=== PATIENT | female | born 1975 | race Caucasian/White ===

== ENCOUNTER 2017-08-24 14:37 | Emergency (ER) | payer OTHER ==
[~2017-08-24] VITALS: Ht 162.6 cm; Wt 127.0 kg
--- OUTSIDE RECORDS SUMMARY | 2017-08-24 15:13 | External Medical Summary Rpt | CCD ---
Author Author , HANS MAXWELL Address Unknown Phone Purpose Continuity of Care Document - through 2016
--- OUTSIDE RECORDS SUMMARY | 2017-08-24 15:13 | External Medical Summary Rpt | CCD ---
Demographics Preferred Language Argentine Marital Status Unknown [facility] Affiliation Unknown Race Unknown Ethnic Group Unknown Author Author , HANS MAXWELL Address Unknown Phone Immunization No patient found.
--- OUTSIDE RECORDS SUMMARY | 2017-08-24 15:13 | External Medical Summary Rpt | CCD ---
Demographics Preferred Language Albanian Marital Status Unknown Jain Affiliation Unknown Race Unknown Ethnic Group Unknown Author Author , HANS MAXWELL Address Unknown Phone Immunization No patient found.
[2017-08-24 15:14] LABS: HEMOGLOBIN 12.9 g/dL (12.2-16.2); LYMPH # 1.1 K/mm3 (0.7-4.5); LYMPH % 8.2 % (10-50.0)
[2017-08-24 15:37] LABS: BUN 11 mg/dL (7-18); GFR (ESTIMATED) 110 ML/MIN (59-)
--- NOTE | 2017-08-24 15:57 | Emergency Room Report ---
History of Present Illness Time Seen by MD Guajardo Presenting Problem in Triage Pt arrived:Walked Presenting Problem:ABOUT 11PM PATIENT WOKE UP OUT OF SLEEP AND BEGAN PUKING AND CONTINUED TO PUKE EVERY 5 MINUTES. 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 N Clinical Suspician of Infection? N Mental Status: 1 - Regular (Normal Baseline) Sepsis Risk:Low Sepsis Risk Have you (or family members/close friends) recently traveled outside the [place]? N If Yes, where/when: Have you had exposure to infectious disease within the past month? N TB? Other? Specify: 42 years old white female WORKS IN [employer] WHO DEVELOPED DIARRHEA 10-20 TIMES AT 11 PM 08/23/17 AND FOLLOWED BY MICHAEL X 2. One hour ago she developed retrosternal sharp pain associated with shortness of breath and palpitations. She denies having hematemesis or coffee-ground emesis, bleeding per rectum or melanotic stool, she has abdominal tenderness DUE TO VOMITING. She denies flank pain dysuria or hematuria, Source patient, RN notes reviewed, family (A FRIEND ON BED SIDE) Exam Limitations no limitations, clinical condition (VOMITING) ALLERGIES Coded Allergies: No Known Allergies (08/24/17) Home Medications Reported Medications No Known Home Medications History Medical History General CAD? No Angina: No NV: No Hypertension? No Hyperlipidemia? No CHF? No DVT? No PE? No COPD? No Asthma? No Anemia? No GERD? No Gastric ulcers? No GI Bleed? No Hernia? No Thyroid Problems? No Hypothyroidism? No CVA? No Seizures? No Diabetes? No Renal Insuffiency? No End Stage Renal Disease? No UTI? No Stones? No BPH? No GB Disease: Yes Nephritic Syndrome? No Asplenia? No Hepatitis? No Sickle Cell Disease? No Arthritis? No Migraines? No Cataracts? No Glaucoma? No MRSA? No HIV? No TB? No Anxiety? No Depression? No Cancer? No More? 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 Respiratory no symptoms reported Cardiovascular no symptoms reported Gastrointestinal see HPI, diarrhea, nausea, vomiting Genitourinary no symptoms reported. Musculoskeletal no symptoms reported Skin no symptoms reported Psychiatric/Neurological no symptoms reported Physical Exam Vital Signs Vital Signs Date Time Temp Pulse Resp B/P Pulse O2 O2 Flow FiO2 Ox Delivery Rate 08/24 1940 60 16 139/75 99 08/24 1857 80 18 117/64 96 08/24 1849 18 08/24 1550 66 18 162/74 98 08/24 1548 18 08/24 1511 72 20 124/68 97 08/24 1440 75 20 131/60 98 - WBC >12,000 or <4,000 or 10% bands? 2 or more SIRS Criteria Met? B/P:162/74 MAP:83 Creatinine >2.0? UA output<0.5ml/kg/hr for 2 hrs? Platelet count >100,000? Lactate >2.0mmol/1? INR >1.2 or PTT > than 60 sec? Evidence of Organ Dysfunction? Provider documented clinical suspician of infection? N Sepsis Criteria Count: 1 Sepsis Risk: Low Sepsis Risk General Appearance normal appearance, WD/WN Eye Exam - bilateral eye normal exam, bilateral eye PERRL, bilateral eye EOMI Ear, Nose, Throat hearing grossly normal, normal ENT inspection Neck normal inspection, non-tender, supple, full range of motion Respiratory Status Yes: trachea midline, chest symmetrical, non tender chest. No: respiratory distress. Lung Sounds bilateral: normal breath sounds, lungs clear. Cardiovascular normal exam, regular rate/rhythm, no peripheral edema, no gallop, no JVD, no murmur, no rub, normal peripheral pulses Peripheral Pulses Pulses normal Yes Gastrointestinal normal bowel sounds, normal exam, soft, no organomegaly, no guarding, no rebound, tenderness, OBESE SOFT ABDOMEN WITH DIFFUSE MILD TENDERNESS NOTED ACROSS A REBOUND TENDERNESS NO RIGIDITY NO GUARDING POSITIVE BOWEL SOUNDS. 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 No Results/Orders Laboratory Tests 08/24/17 1450: Influenza Type A Ag NOT DETECTED, Influenza Type B Ag NOT DETECTED 08/24/17 1445: Magnesium 1.7 08/24/17 1445: B-Natriuretic Peptide 149 H 08/24/17 1445: Amylase 37, Lipase 96 08/24/17 1445: Sodium 139, Potassium 3.8, Chloride 104, Carbon Dioxide 23, BUN 11, Creatinine 0.6, Estimated Creat Clear 245 H, Estimated GFR (MDRD) 110, Glucose 143 H, Calcium 8.9, Total Bilirubin 0.3, AST 14 L, ALT 24, Alkaline Phosphatase 97, Creatine Kinase 95, CK-MB (CK-2) Rel Index 0.8, CK and CKMB Interp 0.8, Troponin I < 0.02, Total Protein 7.6, Albumin 3.5, Globulin 4.1 H, Albumin/Globulin Ratio 0.9 L, D-Dimer 451 *H, WBC 13.0 H, RBC 4.56, Hgb 12.9, Hct 39.4, MCV 86.5, RDW 14.3, Plt Count 309, MPV 7.7, Gran % 89.0 H, Gran # 11.5 H, Total Counted 100, Lymphocytes % 8.2 L, Monocytes % 2.0, Eosinophils % 0.7, Basophils % 0.2, Neutrophils 89 H, Lymphocytes (Manual) 11, Lymphocytes # 1.1, Monocytes # 0.3, Eosinophils # 0.1, Basophils # 0.0, Platelet Estimate NORMAL, PUBS MCHC 32.8, MCH 28.4 Current Medication Orders Sig/Constance Start time Last Medication Dose Route Stop Time Status Admin Iopamidol 60 ML ONCE ONE 08/24 1930 UNV 08/24 IV 08/24 Sodium Chloride 40 ML ONCE ONE 08/24 1930 UNV 08/24 IV 08/24 Metronidazole 100 ML .STK-MED ONE 08/24 1923 DC IV Metronidazole 100 ML ONCE ONE 08/24 1915 AC 08/24 IV 08/24 Meperidine HCl 25 MG ONCE ONE 08/24 1845 DC 08/24 IV 08/24 Promethazine HCl 12.5 MG ONCE ONE 08/24 1845 DC 08/24 IV 08/24 1846 1848 Sodium Chloride 25 ML ONCE ONE 08/24 1845 DC IV 08/24 1859 Sodium Chloride 1,000 ML .Q1H1M 08/24 1845 AC 08/24 IV 08/24 1945 1846 Sodium Chloride 10 ML PRN PRN 08/24 1845 AC IV 08/25 1838 Sodium Chloride 1,000 ML .STK-MED ONE 08/24 1840 DC IV Sodium Chloride 25 ML .STK-MED ONE 08/24 1840 DC IV Promethazine HCl 0 .STK-MED ONE 08/24 1839 DC .ROUTE Meperidine HCl 0 .STK-MED ONE 08/24 183 DC .ROUTE Morphine Sulfate 4 MG ONCE ONE 08/24 1600 DC 08/24 IV 08/24 1601 1548 Morphine Sulfate 0 .STK-MED ONE 08/24 1548 DC .ROUTE Ibuprofen 800 MG ONCE ONE 08/24 1545 CAN PO 08/24 1546 Promethazine HCl 12.5 MG ONCE ONE 08/24 1545 DC 08/24 IV 08/24 1546 1540 Sodium Chloride 25 ML ONCE ONE 08/24 1545 DC 08/24 IV 08/24 1559 1540 Ibuprofen 0 .STK-MED ONE 08/24 1543 DC PO Sodium Chloride 25 ML .STK-MED ONE 08/24 1539 DC IV Promethazine HCl 0 .STK-MED ONE 08/24 1537 DC .ROUTE Ondansetron HCl 4 MG ONCE ONE 08/24 1500 DC 08/24 IV 08/24 1501 1455 Sodium Chloride 10 ML PRN PRN 08/24 1500 AC IV 08/25 1450 Sodium Chloride 1,000 ML ONCE ONE 08/24 1500 CAN IV 08/24 1501 Sodium Chloride 1,000 ML .Q1H1M 08/24 1500 DC 08/24 IV 08/24 1600 1455 Sodium Chloride 10 ML PRN PRN 08/24 1500 AC IV 08/25 1454 Sodium Chloride 1,000 ML .STK-MED ONE 08/24 1451 DC IV Ondansetron HCl 0 .STK-MED ONE 08/24 1450 DC .ROUTE Orders Procedure Date/time Status DIET-NOTHING BY MOUTH 08/[address] CHEST W/PE PROTOCOL REQ 08/24 1643 Complete D-DIMER 08/24 1559 Complete BRAIN NATRIURETIC PEPTIDE 08/24 1559 Complete MAGNESIUM 08/24 1546 Complete LIPASE 08/24 1545 Complete AMYLASE 08/24 1545 Complete INFLUENZA A&B ANTIGENS 08/24 1502 Complete IV SALINE LOCK 08/24 1451 Active PATCH DRILLER 08/24 145 Active CBC WITH AUTO DIFF 08/24 1451 Complete CARDIAC ENZYMES 08/24 1451 Complete CHEM 12 PROFILE 08/24 1451 Complete DIFFERENTIAL-WBC 08/24 1445 Complete CTA-CHEST 08/24 UNK Active CM/EKG CM/EKG EKG rate, NSR, rhythm, no evid. of ischemic chgs, no ectopy, normal QRS, normal OR, normal EKG XRAY/CT/US XRAY/CT/US XRAY chest, abdomen XR interpretation by reviewed by me Xray Results normal/NAD Departure Departure Time of Disposition 1556 Disposition Still a Patient Clinical Impression Primary Impression: Vomiting Condition STABLE Additional Instructions THE CLARA REMIANED STABLE AND TOLERATED HER GASTROGRAFFIN. SHE HAD NEGATIVE ESOPHAGOGRAM AND CT STUDY FOR PE, IN ADDITIN TO NEGATIVE TROPONIN. SHE WILL BE DISCHARGED WITH OFF WORK EXCUSE, PHENERGEN SUPP AND RECOMMENDATIONS FOR PLENTY OF FLUIDS AND OBSERVE UOP AND FOLLOW UP WITH PCP of her choice as she has [employer] health insurance. Discharge Counseling Counseled pt/family regarding diagnosis, test results, medications/RX, follow up needs Prescriptions Current Visit Scripts Promethazine Hcl (Promethazine) 25 MG OR Q6HP PRN Nausea #12 SUP Metronidazole (Flagyl) 500 MG PO Q8 #21 TAB ED Critical Care Critical Care No If Critical Care minutes are documented, the time involved in the performance of seperately reportable procedures was not counted toward critical care time documented. I directly delivered medical care to this critically ill and/or injured patient. Timely evaluation and treatment was necessary to address the significant organ system(s) dysfunction present in this patient. at 1944
--- NOTE | 2017-08-24 15:57 | Emergency Room Report ---
History of Present Illness Time Seen by MD Guajardo Presenting Problem in Triage Pt arrived:Walked Presenting Problem:ABOUT 11PM PATIENT WOKE UP OUT OF SLEEP AND BEGAN PUKING AND CONTINUED TO PUKE EVERY 5 MINUTES. 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 N Clinical Suspician of Infection? N Mental Status: 1 - Regular (Normal Baseline) Sepsis Risk:Low Sepsis Risk Have you (or family members/close friends) recently traveled outside the [place]? N If Yes, where/when: Have you had exposure to infectious disease within the past month? N TB? Other? Specify: 42 years old white female WORKS IN [employer] WHO DEVELOPED DIARRHEA 10-20 TIMES AT 11 PM 08/23/17 AND FOLLOWED BY MICHAEL X 2. One hour ago she developed retrosternal sharp pain associated with shortness of breath and palpitations. She denies having hematemesis or coffee-ground emesis, bleeding per rectum or melanotic stool, she has abdominal tenderness DUE TO VOMITING. She denies flank pain dysuria or hematuria, Source patient, RN notes reviewed, family (A FRIEND ON BED SIDE) Exam Limitations no limitations, clinical condition (VOMITING) ALLERGIES Coded Allergies: No Known Allergies (08/24/17) Home Medications Reported Medications No Known Home Medications History Medical History General CAD? No Angina: No MT: No Hypertension? No Hyperlipidemia? No CHF? No DVT? No PE? No COPD? No Asthma? No Anemia? No GERD? No Gastric ulcers? No GI Bleed? No Hernia? No Thyroid Problems? No Hypothyroidism? No CVA? No Seizures? No Diabetes? No Renal Insuffiency? No End Stage Renal Disease? No UTI? No Stones? No BPH? No GB Disease: Yes Nephritic Syndrome? No Asplenia? No Hepatitis? No Sickle Cell Disease? No Arthritis? No Migraines? No Cataracts? No Glaucoma? No MRSA? No HIV? No TB? No Anxiety? No Depression? No Cancer? No More? 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 Respiratory no symptoms reported Cardiovascular no symptoms reported Gastrointestinal see HPI, diarrhea, nausea, vomiting Genitourinary no symptoms reported. Musculoskeletal no symptoms reported Skin no symptoms reported Psychiatric/Neurological no symptoms reported Physical Exam Vital Signs Vital Signs Date Time Temp Pulse Resp B/P Pulse O2 O2 Flow FiO2 Ox Delivery Rate 08/24 1940 60 16 139/75 99 08/24 1857 80 18 117/64 96 08/24 1849 18 08/24 1550 66 18 162/74 98 08/24 1548 18 08/24 1511 72 20 124/68 97 08/24 1440 75 20 131/60 98 - WBC >12,000 or <4,000 or 10% bands? 2 or more SIRS Criteria Met? B/P:162/74 MAP:83 Creatinine >2.0? UA output<0.5ml/kg/hr for 2 hrs? Platelet count >100,000? Lactate >2.0mmol/1? INR >1.2 or PTT > than 60 sec? Evidence of Organ Dysfunction? Provider documented clinical suspician of infection? N Sepsis Criteria Count: 1 Sepsis Risk: Low Sepsis Risk General Appearance normal appearance, WD/WN Eye Exam - bilateral eye normal exam, bilateral eye PERRL, bilateral eye EOMI Ear, Nose, Throat hearing grossly normal, normal ENT inspection Neck normal inspection, non-tender, supple, full range of motion Respiratory Status Yes: trachea midline, chest symmetrical, non tender chest. No: respiratory distress. Lung Sounds bilateral: normal breath sounds, lungs clear. Cardiovascular normal exam, regular rate/rhythm, no peripheral edema, no gallop, no JVD, no murmur, no rub, normal peripheral pulses Peripheral Pulses Pulses normal Yes Gastrointestinal normal bowel sounds, normal exam, soft, no organomegaly, no guarding, no rebound, tenderness, OBESE SOFT ABDOMEN WITH DIFFUSE MILD TENDERNESS NOTED ACROSS A REBOUND TENDERNESS NO RIGIDITY NO GUARDING POSITIVE BOWEL SOUNDS. Extremities non-tender, normal range of motion, normal inspection Neurologic alert, communications lead II-XII nml as tested, normal exam, oriented x 3 Reflexes Reflexes normal Yes Mental status normal mood/affect Skin intact, normal color, warm/dry Lymphatic no adenopathy Medical Decision Making LABS/Meds/Orders Pt receiving controlled substance in ED? No Results/Orders Laboratory Tests 08/24/17 1450: Influenza Type A Ag NOT DETECTED, Influenza Type B Ag NOT DETECTED 08/24/17 1445: Magnesium 1.7 08/24/17 1445: B-Natriuretic Peptide 149 H 08/24/17 1445: Amylase 37, Lipase 96 08/24/17 1445: Sodium 139, Potassium 3.8, Chloride 104, Carbon Dioxide 23, BUN 11, Creatinine 0.6, Estimated Creat Clear 245 H, Estimated GFR (MDRD) 110, Glucose 143 H, Calcium 8.9, Total Bilirubin 0.3, AST 14 L, ALT 24, Alkaline Phosphatase 97, Creatine Kinase 95, CK-MB (CK-2) Rel Index 0.8, CK and CKMB Interp 0.8, Troponin I < 0.02, Total Protein 7.6, Albumin 3.5, Globulin 4.1 H, Albumin/Globulin Ratio 0.9 L, D-Dimer 451 *H, WBC 13.0 H, RBC 4.56, Hgb 12.9, Hct 39.4, MCV 86.5, RDW 14.3, Plt Count 309, MPV 7.7, Gran % 89.0 H, Gran # 11.5 H, Total Counted 100, Lymphocytes % 8.2 L, Monocytes % 2.0, Eosinophils % 0.7, Basophils % 0.2, Neutrophils 89 H, Lymphocytes (Manual) 11, Lymphocytes # 1.1, Monocytes # 0.3, Eosinophils # 0.1, Basophils # 0.0, Platelet Estimate NORMAL, PUBS MCHC 32.8, MCH 28.4 Current Medication Orders Sig/Constance Start time Last Medication Dose Route Stop Time Status Admin Iopamidol 60 ML ONCE ONE 08/24 1930 UNV 08/24 IV 08/24 Sodium Chloride 40 ML ONCE ONE 08/24 1930 UNV 08/24 IV 08/24 Metronidazole 100 ML .STK-MED ONE 08/24 1923 DC IV Metronidazole 100 ML ONCE ONE 08/24 1915 AC 08/24 IV 08/24 Meperidine HCl 25 MG ONCE ONE 08/24 1845 DC 08/24 IV 08/24 Promethazine HCl 12.5 MG ONCE ONE 08/24 1845 DC 08/24 IV 08/24 1846 1848 Sodium Chloride 25 ML ONCE ONE 08/24 1845 DC IV 08/24 1859 Sodium Chloride 1,000 ML .Q1H1M 08/24 1845 AC 08/24 IV 08/24 1945 1846 Sodium Chloride 10 ML PRN PRN 08/24 1845 AC IV 08/25 1838 Sodium Chloride 1,000 ML .STK-MED ONE 08/24 1840 DC IV Sodium Chloride 25 ML .STK-MED ONE 08/24 1840 DC IV Promethazine HCl 0 .STK-MED ONE 08/24 1839 DC .ROUTE Meperidine HCl 0 .STK-MED ONE 08/24 183 DC .ROUTE Morphine Sulfate 4 MG ONCE ONE 08/24 1600 DC 08/24 IV 08/24 1601 1548 Morphine Sulfate 0 .STK-MED ONE 08/24 1548 DC .ROUTE Ibuprofen 800 MG ONCE ONE 08/24 1545 CAN PO 08/24 1546 Promethazine HCl 12.5 MG ONCE ONE 08/24 1545 DC 08/24 IV 08/24 1546 1540 Sodium Chloride 25 ML ONCE ONE 08/24 1545 DC 08/24 IV 08/24 1559 1540 Ibuprofen 0 .STK-MED ONE 08/24 1543 DC PO Sodium Chloride 25 ML .STK-MED ONE 08/24 1539 DC IV Promethazine HCl 0 .STK-MED ONE 08/24 1537 DC .ROUTE Ondansetron HCl 4 MG ONCE ONE 08/24 1500 DC 08/24 IV 08/24 1501 1455 Sodium Chloride 10 ML PRN PRN 08/24 1500 AC IV 08/25 1450 Sodium Chloride 1,000 ML ONCE ONE 08/24 1500 CAN IV 08/24 1501 Sodium Chloride 1,000 ML .Q1H1M 08/24 1500 DC 08/24 IV 08/24 1600 1455 Sodium Chloride 10 ML PRN PRN 08/24 1500 AC IV 08/25 1454 Sodium Chloride 1,000 ML .STK-MED ONE 08/24 1451 DC IV Ondansetron HCl 0 .STK-MED ONE 08/24 1450 DC .ROUTE Orders Procedure Date/time Status DIET-NOTHING BY MOUTH 08/[address] CHEST W/PE PROTOCOL REQ 08/24 1643 Complete D-DIMER 08/24 1559 Complete BRAIN NATRIURETIC PEPTIDE 08/24 1559 Complete MAGNESIUM 08/24 1546 Complete LIPASE 08/24 1545 Complete AMYLASE 08/24 1545 Complete INFLUENZA A&B ANTIGENS 08/24 1502 Complete IV SALINE LOCK 08/24 1451 Active SOLAR FIELD SERVICE TECHNICIAN 08/24 145 Active CBC WITH AUTO DIFF 08/24 1451 Complete CARDIAC ENZYMES 08/24 1451 Complete CHEM 12 PROFILE 08/24 1451 Complete DIFFERENTIAL-WBC 08/24 1445 Complete CTA-CHEST 08/24 UNK Active CM/EKG CM/EKG EKG rate, NSR, rhythm, no evid. of ischemic chgs, no ectopy, normal QRS, normal UT, normal EKG XRAY/CT/US XRAY/CT/US XRAY chest, abdomen XR interpretation by reviewed by me Xray Results normal/NAD Departure Departure Time of Disposition 1556 Disposition Still a Patient Clinical Impression Primary Impression: Vomiting Condition STABLE Additional Instructions THE CLARA REMIANED STABLE AND TOLERATED HER GASTROGRAFFIN. SHE HAD NEGATIVE ESOPHAGOGRAM AND CT STUDY FOR PE, IN ADDITIN TO NEGATIVE TROPONIN. 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 Discharge Counseling Counseled pt/family regarding diagnosis, test results, medications/RX, follow up needs Prescriptions Current Visit Scripts Promethazine Hcl (Promethazine) 25 MG UT Q6HP PRN Nausea #12 SUP Metronidazole (Flagyl) 500 MG PO Q8 #21 TAB ED Critical Care Critical Care No If Critical Care minutes are documented, the time involved in the performance of seperately reportable procedures was not counted toward critical care time documented. I directly delivered medical care to this critically ill and/or injured patient. Timely evaluation and treatment was necessary to address the significant organ system(s) dysfunction present in this patient. at 1944
[2017-08-24 17:19] LABS: NEUTROPHILS 89 % (42-76)
--- NOTE | 2017-08-24 17:41 | RADIOLOGY REPORT PS360 ---
CHEST-PORTABLE COMPARISON: HISTORY: S pain recent repeated vomiting TECHNIQUE: Portable upright chest FINDINGS: The lung evangelista are well expanded and appear clear of infiltrate. Cardiac size is normal and the vascularity is normal. There is no pleural fluid and there is no pneumothorax. IMPRESSION: Negative portable chest
--- NOTE | 2017-08-24 18:06 | RADIOLOGY REPORT PS360 ---
ESOPHAGUS/CERVICAL COMPARISON: None HISTORY: Pain after TECHNIQUE: Repeated vomiting, overhead films of the esophagus while swallowing Gastrografin FINDINGS: The oral cavity and upper esophagus are not opacified at the time of the swallowing films. However the thoracic esophagus and gastroesophageal junction are opacified showing no obvious evidence of a tear or leak. However with normal peristalsis a short segment of the lower thoracic esophagus is not distended with contrast at the time of the exposure. IMPRESSION: No obvious esophageal rupture on these images however if there is a strong clinical suspicion of esophageal rupture follow-up study with fluoroscopy and the radiologist present should be considered for better overall evaluation.
--- NOTE | 2017-08-24 18:06 | RADIOLOGY REPORT PS360 ---
CERVICAL SPINE-2 TO 3 VIEWS COMPARISON: Gastrografin swallow same date HISTORY: Repeated vomiting question of esophageal leak TECHNIQUE: Overhead films taken while swallowing Gastrografin FINDINGS: The findings were discussed on the dictation of the esophagram, see that report. IMPRESSION: No obvious esophageal rupture identified see previous report on the esophagram
--- NOTE | 2017-08-24 18:07 | RADIOLOGY REPORT PS360 ---
ABD ACUTE(MUL VIEWS) COMPARISON: None HISTORY: Epigastric pain after repeated vomiting TECHNIQUE: PA chest, KUB and upright abdomen FINDINGS: The lung evangelista are well expanded and appear clear of infiltrate. The calcified granuloma right upper lobe. Cardiac size is normal and is no pleural fluid. Abdominal films show small amount gas within the stomach and a small amount gas in the ascending colon. There is little or no small bowel gas and is no evidence of free air. There are no abnormal soft tissue shadows. There are surgical clips right upper quadrant from previous cholecystectomy and there are bilateral tubal ligation clips noted. IMPRESSION: Negative chest and essentially nondiagnostic abdomen
[2017-08-24] MEDS ORDERED: PROMETHAZINE25 MG PR (19:40)
--- NOTE | 2017-08-24 19:43 | RADIOLOGY REPORT PS360 ---
CTA -CHEST COMPARISON: None HISTORY: Chest pain, elevated d-dimer TECHNIQUE: Multiple axial scans obtained from the upper chest to the hemidiaphragms after rapid injection of IV contrast. Sagittal and coronal reformats were evaluated as well. FINDINGS: Initially the CT scan was attempted but the IV infiltrated and no IV contrast was delivered to the heart and pulmonary arteries. However there was Gastrografin contrast remaining in the esophagus from the Gastrografin swallow performed earlier and there are again is no obvious tear or leakage of contrast from the esophagus. Repeat study was performed and there is satisfactory vascular opacification. There is no CT evidence of pulmonary emboli. The lung evangelista are well expanded and clear of infiltrate bilaterally. There is no pleural fluid. There is mild generalized cardio megaly. IMPRESSION: CT study negative for PE
[2017-08-24] MEDS ORDERED: FLAGYL500 M1 PO (19:44)
[2017-08-24 19:56] VITALS: BP 139/75
== END 2017-08-24 19:56 | disposition still patient (30) ==
LOC: ER 14:37
PROVIDERS: Emergency Medicine
DX: K52.9 Noninfective gastroenteritis and colitis, unspecified (principal)
CPT/HCPCS: J2405; Q9967